=== PATIENT | female | born 1955 ===

== ENCOUNTER → 2024-01-12 | Outpatient (CLI) | payer MEDICARE, OTHER ==
[2024-01-16 05:28] LABS: HSV 1 SUBTYPE BY PCR Not Detected; HSV 2 SUBTYPE BY PCR Not Detected; HSV SUBTYPE SOURCE Swab
== END ==
LOC: LAB 17:40 → LAB SHORT 17:40
PROVIDERS: Physician Assistant Medical
DX: D37.01 Neoplasm of uncertain behavior of lip (principal); L57.0 Actinic keratosis; L81.8 Other specified disorders of pigmentation; D22.5 Melanocytic nevi of trunk; D22.4 Melanocytic nevi of scalp and neck; D22.61 Melanocytic nevi of right upper limb, including shoulder; D22.72 Melanocytic nevi of left lower limb, including hip; L81.4 Other melanin hyperpigmentation; L57.8 Other skin changes due to chronic exposure to nonionizing radiation; Z12.83 Encounter for screening for malignant neoplasm of skin; Z08 Encounter for follow-up examination after completed treatment for malignant neoplasm; Z85.828 Personal history of other malignant neoplasm of skin
CPT/HCPCS: 87529